=== PATIENT | male | born 1965 ===

== ENCOUNTER 2021-11-05 16:31 | Emergency (ER) | payer OTHER, SELFPAY | END 2021-11-05 18:35 | disposition home or self-care (01) | LOC: ERS 16:31 | DX: S16.1XXA Strain of muscle, fascia and tendon at neck level, initial encounter (principal); F17.210 Nicotine dependence, cigarettes, uncomplicated; V49.49XA Driver injured in collision with other motor vehicles in traffic accident, initial encounter | CPT/HCPCS: 72125 ==